=== PATIENT | female | born 1990 | race Caucasian/White ===

== ENCOUNTER 2021-09-28 14:06 | Emergency (ER) | payer SELFPAY ==
--- OUTSIDE RECORDS SUMMARY | 2021-09-28 14:10 | XMS REPORT | Continuity of Care Document ---
:1990 Author Organization [facility] t Address [address] [place] [address] Care Team Providers Name Role Phone PCP, DOES NOT HAVE A Primary Care Physician Unavailable KATIANA MATIAS Attending Clinician Unavailable Katiana Matias MD Attending Clinician Doctor Unassigned, Name Attending Clinician Unavailable Navid Hitchcock DO Attending Clinician Payers Payer Name Policy Type Policy Number Effective Date Expiration Date S nanyc [employer]IC [id number] 2020 00:00:00 [employer] [place] [id number] 2015 00:00:00 Problems Condition Condition Condition Status Onset Resolution Last Treating Co mments Source Name Details Category Date Date Treatment Clinician Date Well woman Well woman Disease Active U melody exam with exam with - ity of routine routine 00:00: [place] gynecologi gynecologi 00 Me dical jasmyne exam jasmyne exam Branch Family Family Disease Active Univers history of history of 7 it y of breast breast 00:00: [place] cancer cancer 00 Medical Branch Obesity Obesity Disease Active Univers (BMI (BMI 8-19 ity of 30-39.9) 30-39.9) 00:00: [place] 00 Medical Branch Atypical Atypical Disease Active Unive rs squamous squamous 8-19 ity of cells of cells of 00:00: [place] undetermin undetermin 00 Me dical ed ed Branch significan significan ce (ASCUS) ce (ASCUS) on on Papanicola Papanicola ou smear ou smear of cervix of cervix Breakthrou Breakthrou Disease Active 2019- U nivers gh gh 8-19 ity of bleeding bleeding 00:00: [place] on on Medical Nexplanon Nexplanon Bran ch History of History of Disease Active U nivers herpes herpes 9- ity of genitalis [facility] High-risk High-risk Disease Active Uni vers 9- ity of supervisio [place]visio [place] third n, third 00 Medica l trimester trimester Bran ch Nausea/vom Nausea/vom Disease Active U nivers iting in iting in 07-05 ity of 00:00: [facility] s Medical Branch Encounter Encounter Disease Active Uni vers for for 07-05 ity of supervisio supervisio 00:00: [place] n of 00 Medical normal normal Branch first first in second in second trimester trimester Ankle Ankle Disease Active Univers pain, pain, 3-08 ity of right right 00:00: Medical Branch Foot pain, Foot pain, Disease Active U nivers right right 3-08 ity of 00:00: Medical Sims Allergies, Adverse Reactions, Alerts Allergy Allergy Status Severity Reaction(s) Onset Inactive Treating Comm ents Source Name Type Date Date Clinician VALACYCL DRUG Active Rash Univers OVIR INGREDI 1-26 ity of 00:00: [facility] Branch Valacycl Propensi Active Rash Univer s ovir ty to 1-26 ity of adverse 00:00: [place] reaction 00 Medical s Branch Social History Social Habit Start Date Stop Date Quantity Comments Source Exposure to Not sure [facility] SARS-CoV-2 [facility] (event) Branch Tobacco use and 2020-09-10 2020-09-10 Never used Universit y of exposure 00:00:00 00:00:00 [facility] Alcohol intake 2020-09-10 2020-09-10 Current University of 00:00:00 00:00:00 non-drinker of [facility] alcohol Branch (finding) Sex Ass[birth year] Universit y of 00:00:00 00:00:00 [facility] Smoking Status Start Date Stop Date Source Never smoker University [facility] Medical Branch Medications Ordered Filled Start Stop Current Ordering Indication Dosage Frequency Signature Comments Components Source Medication Medication Date Date Medication? Clinician (SIG) Name Name estradioL 1 Yes [id number] 1mg Take 1 Univers mg tablet 8-19 tablet by ity o f 00:00: mouth [place] 00 daily. Medical Branch estradioL 1 2019-0 Yes [id number] 1mg Take 1 Univers mg tablet 8-19 tablet by ity o f 00:00: mouth [place] 00 daily. Medical Branch estradioL 1 2019-0 Yes [id number] 1mg Take 1 Univers mg tablet 8-19 tablet by ity o f 00:00: mouth [place] 00 daily. Medical Branch ibuprofen Yes 600mg Take 1 Unive rs 600 mg 6-13 tablet by ity of tablet 00:00: mouth [place] 00 every 6 Medical (six) Branch hours as needed for Pain (scale 4-6). acetaminoph Yes 1{tbl} Take 1 Un missy en-codeine 6-13 tablet by ity of 300-30 mg 00:00: mouth [place] tablet 00 every 4 Medical (four) Branch hours as needed for Pain (scale 4-6). ibuprofen 2019- No 600mg Take 1 Univ ers 600 mg 6-13 08-19 tablet by ity of tablet 00:00: 00:00 mouth [place] 00 :00 every 6 Medical (six) Branch hours as needed for Pain (scale 4-6). acetaminoph 2020- No 1{tbl} Take 1 U nivers en-codeine 6-13 08-19 tablet by ity of 300-30 mg 00:00: 00:00 mouth [place] tablet 00 :00 every 4 Medical (four) Branch hours as needed for Pain (scale 4-6). ibuprofen 2020- No 600mg Take 1 Univ ers 600 mg 6-13 08-19 tablet by ity of tablet 00:00: 00:00 mouth [place] 00 :00 every 6 Medical (six) Branch hours as needed for Pain (scale 4-6). acetaminoph 2020- No 1{tbl} Take 1 U nivers en-codeine 6-13 08-19 tablet by ity of 300-30 mg 00:00: 00:00 mouth [place] tablet 00 :00 every 4 Medical (four) Branch hours as needed for Pain (scale 4-6). No known No Univers medications ity [facility] No known No Univers medications ity [facility] No known No Univers medications ity [facility] No known No [facility] Immunizations Ordered Filled Immunization Date Status Comments Sour e Immunization Name Name Influenza Virus 2016-11-25 Completed Universit y of Vaccine Quad IM 3+ 00:00:00 [facility] Influenza Virus 2016-11-25 Completed Universit y of Vaccine Quad IM 3+ 00:00:00 [facility] Influenza Virus 2016-11-25 Completed Universit y of Vaccine Quad IM 3+ 00:00:00 [facility] Influenza Virus 2016-11-25 Completed Universit y of Vaccine Quad IM 3+ 00:00:00 [facility] Influenza Virus 2016-11-25 Completed Universit y of Vaccine Quad IM 3+ 00:00:00 [facility] Influenza Virus 2016-11-25 Completed Universit y of Vaccine Quad IM 3+ 00:00:00 [facility] Influenza Virus 2016-11-25 Completed Universit y of Vaccine Quad IM 3+ 00:00:00 [facility] Influenza Virus 2016-11-25 Completed Universit y of Vaccine Quad IM 3+ 00:00:00 [facility] TDAP 2016-10-12 Completed University of 00:00:00 [facility] TDAP 2016-10-12 Completed University of 00:00:00 [facility] TDAP 2016-10-12 Completed University of 00:00:00 [facility] TDAP 2016-10-12 Completed University of 00:00:00 [facility] TDAP 2016-10-12 Completed University of 00:00:00 [facility] TDAP 2016-10-12 Completed University of 00:00:00 [facility] TDAP 2016-10-12 Completed University of 00:00:00 [facility] TDAP 2016-10-12 Completed University of 00:00:00 [facility] Vital Signs Vital Name Observation Time Observation Value Comments Source Respiratory rate 2020-09-10 16:22:00 18 /min [facility] Body height 2020-09-10 16:22:00 157.5 cm [facility] Body weight 2020-09-10 16:22:00 79.379 kg [facility] BMI 2020-09-10 16:22:00 32.01 kg/m2 [facility] Systolic blood 2020-09-10 16:22:00 104 mm[Hg] Univer sity of [facility] Diastolic blood 2020-09-10 16:22:00 66 mm[Hg] Unive rsity of pressure [facility] Heart rate 2020-09-10 16:22:00 50 /min [facility] Body temperature 2020-09-10 16:22:00 36.67 [facility] Sy[facility]olic blood 2019-10-24 20:25:00 106 mm[Hg] Univer sity of pressure [facility] Diastolic blood 2019-10-24 20:25:00 65 mm[Hg] Unive rsity of pressure [facility] Heart rate 2019-10-24 20:25:00 68 /min [facility] Body temperature 2019-10-24 20:25:00 36.83 [facility]na [facility] Respiratory rate 2019-10-24 20:25:00 18 /min [facility] Body height 2019-10-24 20:25:00 157.5 cm [facility] Body weight 2019-10-24 20:25:00 76.567 kg [facility] BMI 2019-10-24 20:25:00 30.87 kg/m2 [facility] Procedures Procedure Date / Time Performed Performing Clinician Sour e DISCLOSURE AND 2020-09-10 05:01:00 Doctor Unassigned, No [facility] CONSENT, MEDICAL AND Name Medical [facility] SURGICAL PROCEDURES POCT TEST 2019-10-24 20:27:00 Harry Matias [facility] ASSIGNMENT OF BENEFITS 2019-10-24 20:06:08 Doctor Unassigned, No [facility] Encounters Start End Encounter Admission Attending Care Care Encounter Source Date/Time Date/Time Type Type Clinicians Facility Department ID 2021-09-09 2021-09-09 Outpatient [facility] [id number] Univers 09:30:00 09:30:00 [id number] [facility] 2021-09-09 2021-09-09 Outpatient [facility] [id number] Univers 09:30:00 09:30:00 [facility] 2020-09-18 2020-09-18 [facility] [id number] Univers 15:20:00 23:59:00 Encounter Katiana Maldonado [id number] ity [facility] [id number] [id number] [facility] 800 Branch 2020-09-18 2020-09-18 [facility] [id number] Univers 00:00:00 00:00:00 [id number] ity [facility] 2020-09-18 2020-09-[address] [facility] [id number] Univers 00:00:00 00:00:00 ity [facility] 2020-09-15 2020-09-15 [facility] [id number] Univers 13:30:00 13:30:00 [id number] ity [facility] 2020-09-10 2020-09-10 Office Florencio [facility] [id number] Univers 11:18:22 12:01:38 Visit Katiana Maldonado [id number] i ty [facility] [id number] [facility] [id number] Nm dical formerly [facility] 134 [facility] 2020-09-10 2020-09-10 [facility] [id number] Univers 11:00:00 11:00:00 [id number] ity of [facility] 2020-09-10 2020-09-[address] [facility] [id number] Univers 11:00:00 11:00:00 ity [facility] 2020-09-10 2020-09-10 Orders Doctor JEFF [id number] Univers 00:00:00 00:00:00 Only Unassigned, LEONIDES [id number] ity of [facility] [id number] [place] [id number] [facility] 009 Branch 2020-09-08 2020-09-[address] [facility] [id number] Univers 16:00:00 16:00:00 [id number] ity of [facility] 2020-09-08 2020-09-[address] [facility] [id number] Univers 16:00:00 16:00:00 ity of [facility] 2020-09-05 2020-09-[address] [facility] [id number] Univers 14:00:00 14:00:00 [id number] ity [facility] 2020-09-05 2020-09-[address] [facility] [id number] Univers 14:00:00 14:00:00 ity [facility] 2020-05-27 2020-05-[address] [facility] [id number] Univers 00:00:00 00:00:00 [facility] [id number] i ty of [facility] [id number] [place] [id number] Me dical [address] [place] [address] 2020-04-28 2020-04-[address] [facility] [id number] Univers 09:30:00 09:30:00 [id number] [facility] 2020-04-28 2020-04-[address] [facility] [id number] Univers 09:30:00 09:30:00 ity [facility] 2019-10-24 2019-10-24 Office Florencio [facility] [id number] Univers 15:11:38 16:17:09 Visit Katiana Maldonado [id number] i ty of [id number] [id number] Nm dical nal 134 [address] [facility] 2019-10-24 2019-10-[address] [facility] [id number] Univers 15:00:00 15:00:00 [id number] ity of [facility] 2019-10-24 2019-10-[address] [facility] [id number] Univers 15:00:00 15:00:00 ity [facility] 2019-10-24 2019-10-24 Orders Doctor JEFF [id number] Univers 00:00:00 00:00:00 Only Unassigned, LEONIDES [id number] ity of [facility] [id number] [place] [id number] [address] 2019-10-19 2019-10-[address] [facility] [id number] Univers 09:30:00 09:30:00 [id number] ity [facility] 2019-10-19 2019-10-[address] [facility] [id number] [facility] 09:30:00 09:30:00 [facility] Results Test Description Test Time Test Comments Results Result Comments Source POCT TEST 2019-10-24 20:27:00 Test Item Value Reference Range Interpretation Comme nts POCT PREG (test code = 1605) Negative On board controls acceptable with C Line (test code = 3574) Yes POCT PREG LOT # (test code = 3575) POCT PREG TEST DATE (test code = 3576) [id number] 20:27:00 Test Item Value Reference Range Interpretation Comments POCT PREG (test code = 1605) Negative On board controls acceptable with C Yes Line (test code = 3574) POCT PREG LOT # (test code = 3575) POCT PREG TEST DATE (test code = 3576) [facility]
[2021-09-28 15:31] LABS: Potassium 2.9 mmol/L (3.5-5.1)
[2021-09-28 15:53] LABS: Absolute Lymphocytes (CBC) 1.1 K/uL (0.7-4.9); Hematocrit 41.6 % (36.0-45.0); Lymphocytes % 31.6 % (15.3-44.8); MCV 87.7 fL (80-100); MPV 8.2 fL (7.6-11.3); RBC Red Blood Cell Count 4.74 M/uL (3.86-4.86)
[2021-09-28 17:15] LABS: Urine Blood Negative (Negative); Urine Glucose Trace (Negative); Urine Protein 1+ (Negative); Urine Specific Gravity >=1.030 (1.005-1.030); Urine pH 6.5 (5.0-7.0)
--- NOTE | 2021-09-28 17:18 | ER ---
Nurse's Notes [facility] [place] Name: Marilu Holbrook Age: 31 yrs Sex: Female : 1990 Arrival Date: 09/28/2021 Time: 14:10 Bed DIS2 Private MD: Diagnosis: Local infection of the skin and subcutaneous tissue, unspecified;Acute pharyngitis, unspecified Presentation: 09/28 14:22 Chief complaint: Patient states: she thinks she had a tampon stay in too long. she ap3 states that she has a frequent sore throat, intermittent fevers, and has developed sores on her hands. Patient also reports intermittent nausea but denies vomiting. Coronavirus screen: Client presents with at least one sign or symptom that may indicate coronavirus-19. Ebola Screen: No symptoms or risks identified at this time. Risk Assessment: Do you want to hurt yourself or someone else? Patient reports no desire to harm self or others. Onset of symptoms was September 17, 2021. 14:22 Method Of Arrival: Ambulatory ap3 14:24 Initial Sepsis Screen: Does the patient meet any 2 criteria? No. Patient's initial ap3 sepsis screen is negative. Does the patient have a suspected source of infection? No. Patient's initial sepsis screen is negative. 14:24 Acuity: ELY 3 ap3 Triage Assessment: 14:25 General: Appears in no apparent distress. Behavior is calm, cooperative. General: ap3 Reports chills for fever for fatigue for. Pain: Complains of pain in generalized body aches. Neuro: Level of Consciousness is awake, alert, obeys commands, Oriented to person, place, time, situation, Moves all extremities. Speech is normal. Cardiovascular: Patient's skin is warm and dry. Respiratory: Airway is patent Respiratory effort is even, unlabored. GI: Reports nausea. 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 - Social history:: Smoking status: Patient denies any tobacco usage or history of. Screenin:27 Abuse screen: Denies threats or abuse. Nutritional screening: No deficits noted. ap3 Tuberculosis screening: No symptoms or risk factors identified. Vital Signs: 14:22 Temp 98.2; ap3 14:22 BP 99 / 77; Pulse 87; Pulse Ox 100% ; ap3 14:24 Weight 74.84 kg; Height 5 ft. 2 in. (157.48 cm); ap3 14:24 Body Mass Index 30.18 (74.84 kg, 157.48 cm) ap3 ED Course: 14:10 Patient arrived in ED. mr 14:14 Triage completed. ap3 14:15 Cici Block FNP-C is [facility]. kb 14:16 Sumit Paul MD is Attending Physician. kb 14:27 Arm band placed on right wrist. ap3 15:04 Inserted saline lock: 20 gauge in right antecubital area, using aseptic technique. zm Blood collected. 15:04 CPK Sent. zm 15:04 [place] Screen Profile Sent. zm 15:04 Basic Metabolic Panel Sent. 15:04 CBC with Diff Sent. 18:02 Dioni Artis, RN is Primary Nurse. jl7 18:10 IV discontinued, intact, bleeding controlled, No redness/swelling at site. Pressure dh3 dressing applied. Administered Medications: No medications were administered Outcome: 17:18 Discharge ordered by MD. kb 19:10 Patient left the ED. kb Signatures: Cici Block FNP-C [facility]k Vicki Chambers Dioni Artis RN RN jl7 Herrera, Deanna [facility] Estelle Mccarthy RN RN ap3 Mimi Mosley Corrections: (The following items were deleted from the chart) 14:15 14:14 General: Appears in no apparent distress. Behavior is calm, cooperative, ap3 ap3 14:15 14:14 Pain: Denies pain. ap3 ap3 14:15 14:14 Neuro: Level of Consciousness is awake, alert, obeys commands, Oriented to ap3 person, place, time, situation, Speech is normal, ap3 14:15 14:14 General: Reports fatigue for ap3 ap3 14:15 14:14 Cardiovascular: Patient's skin is warm and dry. ap3 ap3 14:15 14:14 Respiratory: Airway is patent Respiratory effort is even, unlabored, ap3 ap3 14:15 14:14 GI: Reports nausea, ap3 ap3 14:16 14:10 Chief complaint: Patient states: she has been having vaginal bleeding for months. ap3 the last time she was evaluated here, she needed a blood transfusion. she reports the treatment she received previously stopped the bleeding for approx one week, however the bleeding hasn't let up since that week. Patient states she feels drained, like her heart races at times, and that she is tired. 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 ap3 14:16 14:10 Coronavirus screen: At this time, the client does not indicate any symptoms ap3 associated with coronavirus-19. ap3 14:16 14:10 Ebola Screen: No symptoms or risks identified at this time. ap3 ap3 14:16 14:10 Risk Assessment: Do you want to hurt yourself or someone else? Patient reports no ap3 desire to harm self or others. ap3 14:16 14:10 Onset of symptoms was June 2021 ap3 ap3 14:16 14:10 Initial Sepsis Screen: Does the patient meet any 2 criteria? No. Patient's ap3 initial sepsis screen is negative. Does the patient have a suspected source of infection? No. Patient's initial sepsis screen is negative. ap3 14:16 14:10 Method Of Arrival: Ambulatory ap3 ap3 14:16 14:10 Pulse 64bpm; Resp 19bpm; Pulse Ox 100%; Temp 98.0F; 90.72 kg; Height 5 ft. 2 in.; ap3 BMI: 36.5; ap3 14:16 14:14 BP 121 / 64; ap3 ap3 14:16 14:14 Acuity: ELY 3 ap3 ap3 14:16 14:13 Allergies: No Known Allergies; ap3 ap3 14:16 14:13 Home Meds: Iron CR Oral; ap3 ap3 14:16 14:13 PMHx: fibroids; ap3 ap3 14:16 14:13 Immunization history: Client reports receiving the 2nd dose of the Covid vaccine, ap3 ap3 14:16 14:13 Social history: Smoking status: Patient denies any tobacco usage or history of. ap3 ap3 14:25 14:25 Allergies: No Known Allergies; ap3 ap3
--- NOTE | 2021-09-28 17:19 | EDPHYS ---
Physician Documentation [facility] Name: Marilu Holbrook Age: 31 yrs Sex: Female : 1990 Arrival Date: 09/28/2021 Time: 14:10 Bed DIS2 Private MD: GIFTY Physician Sumit Paul HPI: 09/28 20:55 This 31 yrs old Female presents to ER via Ambulatory with complaints of Fever, Nausea, kb Sore Throat. 20:55 The patient presents with sore throat. The patient describes throat pain as kb intermittent. Onset: The symptoms/episode began/occurred 2 week(s) ago. Severity of symptoms: At their worst the symptoms were moderate, in the emergency department the symptoms are unchanged. Modifying factors: The symptoms are alleviated by nothing, the symptoms are aggravated by swallowing, Patient's oral intake status: good. Associated signs and symptoms: Pertinent positives: fever, flu-like symptoms, malaise, Sore throat. The patient has not experienced similar symptoms in the past. The patient has not recently seen a physician. Patient reports intermittent sore throat, fevers, malaise, fatigue for approximately 2 weeks. States she has also developed sores on both hands. 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 Also reports that she left a tampon in for approximately 10 hours 2 months ago so she was concerned that that was the cause of her symptoms.. 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 - Social history:: Smoking status: Patient denies any tobacco usage or history of. ROS: 20:54 Respiratory: Negative for shortness of breath, cough, wheezing, and pleuritic chest kb pain. 20:54 Constitutional: Positive for body aches, chills, fatigue, fever, malaise. 20:54 ENT: Positive for sore throat. 20:54 Skin: Positive for of the right hand and left hand, sores. 20:54 All other systems are negative. Exam: 20:52 Constitutional: This is a well developed, well nourished patient who is awake, alert, kb and in no acute distress. Head/Face: Normocephalic, atraumatic. ENT: Moist Mucous membranes Cardiovascular: Regular rate and rhythm with a normal S1 and S2. No gallops, murmurs, or rubs. No pulse deficits. Respiratory: Respirations even and unlabored. No increased work of breathing. Talking in full sentences Abdomen/GI: Soft, non-tender. No distention MS/ Extremity: Pulses equal, no cyanosis. Neurovascular intact. Full, normal range of motion. Neuro: Awake and alert, GCS 15, oriented to person, place, time, and situation. Moves all extremities. Normal gait. Psych: Awake, alert, with orientation to person, place and time. Behavior, mood, and affect are within normal limits. 20:52 Skin: few scattered sores to bilateral hands. Vital Signs: 14:22 Temp 98.2; ap3 14:22 BP 99 / 77; Pulse 87; Pulse Ox 100% ; ap3 14:24 Weight 74.84 kg; Height 5 ft. 2 in. (157.48 cm); ap3 14:24 Body Mass Index 30.18 (74.84 kg, 157.48 cm) ap3 MDM: 14:34 Patient medically screened. kb 19:09 Data reviewed: vital signs, nurses notes. Data interpreted: Pulse oximetry: on room air kb is 100 %. Interpretation: normal. Counseling: I had a detailed discussion with the patient and/or guardian regarding: the historical points, exam findings, and any diagnostic results supporting the discharge/admit diagnosis, lab results, the need for outpatient follow up, a family practitioner, to return to the emergency department if symptoms worsen or persist or if there are any questions or concerns that arise at home. 09/28 14:35 Order name: Flu; Complete Time: 15:35 kb 09/28 14:35 Order name: COVID-19 SARS RT PCR (Document "Date of Onset" if Symptomatic); Complete kb Time: 15:53 09/28 14:35 Order name: Strep; Complete Time: 15:21 kb 09/28 14:35 Order name: CBC with Diff; Complete Time: 15:58 kb 09/28 14:35 Order name: Basic Metabolic Panel; Complete Time: 15:32 kb 09/28 14:35 Order name: Bath Screen Profile; Complete Time: 15:31 kb 09/28 14:35 Order name: IV Start; Complete Time: 15:04 kb 09/28 14:35 Order name: CPK; Complete Time: 15:32 kb 09/28 15:23 Order name: Throat Culture EDMS 09/28 16:49 Order name: Urine Dipstick-Ancillary (obtain specimen); Complete Time: 17:23 kb 09/28 17:15 Order name: Urine Dipstick-Ancillary; Complete Time: 17:16 EDMS Administered Medications: No medications were administered Disposition Summary: 09/28/21 17:18 Discharge Ordered Location: Home kb Condition: Stable kb Diagnosis - Local infection of the skin and subcutaneous tissue, unspecified kb - Acute pharyngitis, unspecified kb Followup: kb - With: Emergency Department - When: As needed - Reason: Worsening of condition Followup: kb - With: Private Physician - When: 2 - 3 days - Reason: Recheck today's complaints, Continuance of care, Re-evaluation by your physician Discharge Instructions: - Discharge Summary Sheet kb - Pharyngitis, [id number] kb - Wound Infection, [id number] kb Forms: - Medication Reconciliation Form kb - Thank You Letter kb - Antibiotic Education kb - Prescription Opioid Use kb Prescriptions: - Cephalexin 500 mg Oral Capsule - take 1 capsule by ORAL route every 8 hours for 10 days; 30 capsule; Refills: 0, kb Product Selection Permitted Signatures: Dispatcher [employer] EDCici Bhatt FNP-C FNP-Ckb Prokisch, Amanda, RN RN ap3 Corrections: (The following items were deleted from the chart) 14:16 14:13 Allergies: No Known Allergies; ap3 ap3 14:16 14:13 Home Meds: Iron CR Oral; ap3 ap3 14:16 14:13 PMHx: fibroids; ap3 ap3 14:16 14:13 Immunization history: Client reports receiving the 2nd dose of the Covid vaccine, ap3 ap3 14:16 14:13 Social history: Smoking status: Patient denies any tobacco usage or history of. ap3 ap3 14:25 14:25 Allergies: No Known Allergies; ap3 ap3
[2021-09-28] MEDS ORDERED: POTASSIUM 25 MEQ EFFERV TAB ONE (17:37)
[2021-09-28] MEDS ORDERED: POTASSIUM CL SA 10 MEQ TAB PO ONE (18:15)
[2021-09-28 19:21] VITALS: BP 99/77; TEMP 98.2; O2SAT 100
== END 2021-09-28 19:10 | disposition home or self-care (01) ==
LOC: ER 14:06
DX: L08.9 Local infection of the skin and subcutaneous tissue, unspecified (principal); J02.9 Acute pharyngitis, unspecified; Z88.8 Allergy status to other drugs, medicaments and biological substances
CPT/HCPCS: 36415; 80048; 81003; 82550; 85025; 86308; 87070; 87081; 87804; 99283; U0003